=== PATIENT | female | born 1995 | race Two or more races ===

== ENCOUNTER → 2018-07-09 19:55 | Emergency (ER) | payer OTHER ==
[~2018-07-09 19:55] MED LIST: EPINEPHRINE 1 MG/ML 1 ML VIAL IM ONE; Famotidine TAB* 20 MG PO ONE; predniSONE TAB* 20 MG PO ONE
--- NOTE | 2018-07-09 21:13 | ED ---
Allergic Reaction/Systemic - HPI Summary HPI Summary: This patient is a 22 year old F presenting to [facility] with a chief complaint of hives diffuse throughout her back and LE bilaterally. She was seen this morning 03:00 with hives and was treated with a Pepcid pill, a prednisone pill, and an epinephrine shot. She also took Zyrtec today. Patient reports itchy throat, runny nose, mild difficulty breathing, and sneezing. The last time she had hives was 3 years ago when she had a reaction to amoxicillin. - History of Current Complaint Chief Complaint: EDAllergicReaction Time Seen by Provider: 07/09/18 21:03 Hx Obtained From: Patient Onset/Duration: Sudden Onset, Started hours ago, Still Present Timing: Constant Pain Intensity: 0 Location: Diffuse - Back and lower extremities bilaterally Associated Signs And Symptoms: Positive: Rash - Hives, Other: - Reports itchy throat, runny nose, mild difficulty breathing, and sneezing. - Allergies/Home Medications Allergies/Adverse Reactions: Allergies Allergy/AdvReac Type Severity Reaction Status Date / Time amoxicillin Allergy Anaphylatic Verified 07/09/18 20:05 Shock walnut Allergy Airway Uncoded 07/09/18 20:02 Obstruction PMH/Surg Hx/FS Hx/Imm Hx Endocrine/Hematology History: Denies: Hx Diabetes, Hx Thyroid Disease Cardiovascular History: Denies: Hx Hypertension Respiratory History: Denies: Hx Asthma History: Reports: Other Problems/Disorders - ovarian cysts Infectious Disease History: No Infectious Disease History: Denies: Traveled Outside the [place] in Last 30 Days - Family History Known Family History: Positive: Hypertension, Diabetes, Other - cancer - stomach and breast - Social History Alcohol Use: None Hx Substance Use: No Substance Use Type: Reports: None Hx Tobacco Use: No Smoking Status (MU): Never Smoked Tobacco Review of Systems Positive: Nasal Discharge - Rhinorrhea, Other - Itchy throat Positive: Other - Mild difficulty breathing and sneezing Positive: Rash - Hives diffuse throughout her back and lower extremities bilaterally All Other Systems Reviewed And Are Negative: Yes Physical Exam - Summary Physical Exam Summary: Appearance: Well appearing, no pain distress Skin: Maculopapular rash over extremities and upper back Head/face: normal Eyes: EOMI, ERNESTINE ENT: normal Neck: supple, non-tender Respiratory: CTA, breath sounds present Cardiovascular: RRR, pulses symmetrical Abdomen: non-tender, soft Musculoskeletal: normal, strength/ROM intact Neuro: normal, sensory motor intact, A&Ox3 Triage Information Reviewed: Yes Vital Signs On Initial Exam: Initial Vitals Temp Pulse Resp BP Pulse Ox 99.8 F 69 16 123/76 98 07/09/18 20:01 07/09/18 20:01 07/09/18 20:01 07/09/18 20:01 07/09/18 20:01 Vital Signs Reviewed: Yes Diagnostics - Vital Signs Vital Signs Temp Pulse Resp BP Pulse Ox 07/09/18 20:01 99.8 F 69 16 123/76 98 - Laboratory Lab Statement: Any lab studies that have been ordered have been reviewed, and results considered in the medical decision making process. Allergic Reaction Course/Dx - Course Course Of Treatment: This patient is a 22 year old F presenting to [facility] with a chief complaint of hives diffuse throughout her back and LE bilaterally. Patient was given prednisone, famotidine, and epinephrine. I discharged her with instructions to follow up with an food service specialist. - Diagnoses Differential Diagnosis/HQI/PQRI: Positive: Local Allergic Reaction, Urticaria Provider Diagnoses: Allergic reaction Discharge - Sign-Out/Discharge Documenting (check all that apply): Patient Departure - D/C - Discharge Plan Condition: Stable Disposition: HOME Prescriptions: Famotidine [Pepcid] 40 mg PO BID #10 tablet Patient Education Materials: Allergies (ED) Referrals: Yael Nieto MD [Medical Doctor] - 3 Days Additional Instructions: Follow up with the food service specialist within 3 days. Return to the ED if you have any new or worsening symptoms. - Billing Disposition and Condition Condition: STABLE Disposition: Home - Attestation Statements Document Initiated by Griceldaibe: Yes Documenting Scribe: Thiago Wells Provider For Whom Ivette is Documenting (Include Credential): Madan Albert MD Scribe Attestation: Thiago Ewing scribed for Madan Albert MD on 07/09/18 at 2155. Scribe Documentation Reviewed: Yes Provider Attestation: The documentation as recorded by the Thiago ingram accurately reflects the service I personally performed and the decisions made by me, Madan Albert MD Status of Scribe Document: Viewed
[2018-07-09 22:05] VITALS: BP 118/78
== END | disposition home or self-care (01) ==
LOC: ED 19:55
DX: T78.40XA Allergy, unspecified, initial encounter (principal); X58.XXXA Exposure to other specified factors, initial encounter; Z88.0 Allergy status to penicillin; Z91.018 Allergy to other foods
CPT/HCPCS: 96372; 99282; A9270-GY; J7512